=== PATIENT | male | born 1930 | race Caucasian/White ===

== ENCOUNTER 2017-08-26 22:42 | Emergency (ER) | payer MEDICARE, OTHER ==
[2017-08-26 23:31] LABS: #Eosinphils 0.1 thou/uL (0.0-0.7); #Monocytes 0.5 thou/uL (0.11-0.59); #Neutrophils 10.5 thou/uL (1.40-6.50); %Basophils 0.1 % (0.0-1.0); %Eosinophils 0.7 % (0.0-10.0); %Monocytes 3.9 % (0.0-10.0); %Neutrophils 87.3 % (42.0-75.0); Hemoglobin 12.9 g/dL (14.0-18.0); Mean Corpuscular HGB CONC 33.1 g/dL (32.0-36.0); Mean Corpuscular Volume 93.6 fl (80.0-94.0); Platelet Count 175 thou/uL (130-400); RBC Distribution Width 13.9 % (11.5-14.5); Red Blood Cell (RBC) Count 4.17 mill/uL (4.70-6.10); White Blood Cell (WBC) Count 12.1 thou/uL (4.8-10.8)
[2017-08-26 23:53] LABS: ALT (SGPT) 23 U/L (8-55); AST (SGOT) 23 U/L (5-34); Albumin 4.2 g/dL (3.4-4.8); Alkaline Phosphatase 75 U/L (40-150); Anion Gap 12 mmol/L (10-20); BUN (Urea Nitrogen) 32 mg/dL (8.4-25.7); Bilirubin, Total 1.7 mg/dL (0.2-1.2); Calc. Creatinine Clearance 0 mL/min (70-130); Calcium 9.3 mg/dL (7.8-10.44); Carbon Dioxide 27 mmol/L (23-31); Chloride 102 mmol/L (98-107); Estimated GFR-MDRD 80; Globulin 3.2 g/dL (2.4-3.5); Glucose 142 mg/dL (83-110); Magnesium 1.8 mg/dL (1.6-2.6); Potassium 3.9 mmol/L (3.5-5.1); Protein, Total 7.4 g/dL (5.8-8.1); Sodium 137 mmol/L (136-145)
[2017-08-26 23:58] LABS: CKMB 3.7 ng/mL (0-6.6); Troponin I 0.011 ng/mL (< 0.028)
[2017-08-27 01:14] LABS: Bilirubin Negative (Negative); Blood, Urine Moderate (Negative); Clarity CLOUDY (Clear); Glucose, Urine (Dipstick) Negative (Negative); Leukocyte Large (Negative); Nitrite Negative (Negative); Protein, Urine (Dipstick) Negative (Neg-Trace); Specific Gravity, Urine 1.022 (1.002-1.036); Urobilinogen 0.2 mg/dL (0.2-1.0); pH, Urine 5.5 (5.0-9.0)
[2017-08-27 01:17] LABS: Bacteria/HPF 4+ HPF (None Seen); Hyaline Casts/LPF 0-3 HYALINE CAST LPF (0-3 Hyaline); Pathc Cast-AUWi Flag 0.14 (0-2.49); RBC/HPF 0-3 HPF (0-3); Squamous Epithelial 0-3 HPF (0-3)
[2017-08-27 01:19] LABS: Yeast-AUWi Flag 150.6 (0-25.0)
[2017-08-27 01:20] LABS: Yeast-All Forms None Seen HPF (None Seen)
[2017-08-27] MEDS ORDERED: Lidocaine 1% PF 5 ML VIAL ONE (01:41)
[2017-08-27] MEDS ORDERED: cefTRIAXone\\ROCEPHIN 1 GM VIAL ONE (01:41)
== END 2017-08-27 02:05 | disposition home or self-care (01) ==
LOC: ERS 22:42
DX: N39.0 Urinary tract infection, site not specified (principal); E78.5 Hyperlipidemia, unspecified; I10 Essential (primary) hypertension; N40.0 Benign prostatic hyperplasia without lower urinary tract symptoms; Z79.899 Other long term (current) drug therapy
CPT/HCPCS: 80053; 81003; 81015; 82553; 83735; 84484; 85025; 93005; 96372; J0696; J2001

== ENCOUNTER 2017-12-13 17:20 | Emergency (ER) | payer MEDICARE, OTHER ==
[2017-12-13 18:08] LABS: ALT (SGPT) 37 U/L (8-55); AST (SGOT) 40 U/L (5-34); Albumin 3.6 g/dL (3.4-4.8); Alkaline Phosphatase 69 U/L (40-150); Anion Gap 16 mmol/L (10-20); BUN (Urea Nitrogen) 33 mg/dL (8.4-25.7); Bilirubin, Total 1.2 mg/dL (0.2-1.2); CK (CPK) 150 U/L (30-200); Calc. Creatinine Clearance 0 mL/min (70-130); Calcium 8.9 mg/dL (7.8-10.44); Carbon Dioxide 23 mmol/L (23-31); Chloride 105 mmol/L (98-107); Estimated GFR-MDRD 62; Globulin 3.2 g/dL (2.4-3.5); Glucose 166 mg/dL (83-110); Potassium 4.5 mmol/L (3.5-5.1); Protein, Total 6.8 g/dL (5.8-8.1); Sodium 139 mmol/L (136-145)
[2017-12-13 18:11] LABS: Troponin I Less than 0.010 ng/mL (< 0.028)
[2017-12-13 18:20] LABS: Bilirubin Negative (Negative); Blood, Urine Trace (Negative); Clarity CLOUDY (Clear); Glucose, Urine (Dipstick) Negative (Negative); Leukocyte Large (Negative); Nitrite Positive (Negative); Protein, Urine (Dipstick) Trace mg/dL (Neg-Trace); Specific Gravity, Urine 1.019 (1.002-1.036)
[2017-12-13 18:22] LABS: Bacteria/HPF 1+ HPF (None Seen); Hyaline Casts/LPF 4-6 HYALINE CAST LPF (0-3 Hyaline); Pathc Cast-AUWi Flag 0.87 (0-2.49); RBC/HPF 0-3 HPF (0-3); Squamous Epithelial 0-3 HPF (0-3); Yeast-AUWi Flag 17.7 (0-25.0)
--- NOTE | 2017-12-13 18:36 | RAD ---
PORTABLE AP CHEST X-RAY: 12/13/17 HISTORY: Weakness and headache for one day. History of cancer. COMPARISON: 10/24/17. FINDINGS: Pacing device overlies the right chest. The cardiac silhouette and pulmonary vasculature are within n ormal limits. There is mild elevation of the left hemidiaphragm with minimal atelectasis at the left lung base. The lungs otherwise appear clear. Vascular calcifications seen in the thoracic aorta. Ches t is stable from prior study. IMPRESSION: Stable chest without evidence of acute cardiopulmonary process. POS: ALEAH
[2017-12-13] MEDS ORDERED: cefTRIAXone\\ROCEPHIN 1 GM VIAL ONE (19:41)
[2017-12-13] MEDS ORDERED: Sodium Chloride 0.9% 100 ML ONE (19:41)
[2017-12-13 20:11] LABS: #Lymphocytes 1.1 thou/uL (1.20-3.40); #Monocytes 0.3 thou/uL (0.11-0.59); #Neutrophils 4.9 thou/uL (1.40-6.50); %Basophils 0.2 % (0.0-1.0); %Eosinophils 0.7 % (0.0-10.0); %Lymphocytes 17.2 % (21.0-51.0); %Monocytes 4.3 % (0.0-10.0); %Neutrophils 77.5 % (42.0-75.0); Hemoglobin 10.9 g/dL (14.0-18.0); Mean Corpuscular HGB CONC 33.3 g/dL (32.0-36.0); Mean Corpuscular Hemoglobin 31.5 pg (27.0-31.0); Mean Corpuscular Volume 94.6 fL (78.0-98.0); Mean Platelet Volume 7.4 fL (7.4-10.4); Platelet Count 191 thou/uL (130-400); RBC Distribution Width 13.4 % (11.5-14.5); Red Blood Cell (RBC) Count 3.46 mill/uL (4.70-6.10); White Blood Cell (WBC) Count 6.3 thou/uL (4.8-10.8)
--- NOTE | 2017-12-16 19:43 | EKG ---
Test Reason : Blood Pressure : / mmHG Vent. Rate : 086 BPM Atrial Rate : 086 BPM P-R Int : 164 ms QRS Dur : 140 ms QT Int : 404 ms P-R-T Axes : 012 008 006 degrees QTc Int : 483 ms Normal sinus rhythm Right bundle branch block Abnormal ECG Same as prior Confirmed by ALISIA Peguero, JANNETTE ([id number]), dictionary editor ANNABEL KIMBROUGH ([id number]) on 12/16/2017 7:42:45 PM Referred By: Confirmed By:JANNETTE CRUMP M.D.
== END 2017-12-13 21:18 | disposition home or self-care (01) ==
LOC: ERS 17:20
DX: N39.0 Urinary tract infection, site not specified (principal); R53.1 Weakness; E78.5 Hyperlipidemia, unspecified; I10 Essential (primary) hypertension; Z79.899 Other long term (current) drug therapy
CPT/HCPCS: 36415; 36416; 71045; 80053; 81003; 81015; 82550; 82553; 83605; 84443; 84484; 85025; 87077; 87086; 93005; 96361; 96365; J0696; J7050

== ENCOUNTER 2017-12-29 06:34 | Emergency (ER) | payer MEDICARE, OTHER ==
[2017-12-29 07:14] LABS: Bilirubin Negative (Negative); Blood, Urine Large (Negative); Clarity TURBID (Clear); Glucose, Urine (Dipstick) Negative (Negative); Leukocyte Large (Negative); Nitrite Negative (Negative); Protein, Urine (Dipstick) 300 mg/dL (Neg-Trace); Specific Gravity, Urine 1.022 (1.002-1.036); pH, Urine 6.5 (5.0-9.0)
[2017-12-29 07:17] LABS: Hyaline Casts/LPF 4-6 HYALINE CAST LPF (0-3 Hyaline); Pathc Cast-AUWi Flag 1.23 (0-2.49); Squamous Epithelial None Seen HPF (0-3)
[2017-12-29 07:21] LABS: Yeast-AUWi Flag 79.6 (0-25.0)
[2017-12-29 07:32] LABS: Bacteria/HPF Rare-Few HPF (None Seen); RBC/HPF GREATER THAN 50-TNTC HPF (0-3)
== END 2017-12-29 10:25 | disposition home or self-care (01) ==
LOC: ERS 06:34
DX: N39.0 Urinary tract infection, site not specified (principal); E78.5 Hyperlipidemia, unspecified; I10 Essential (primary) hypertension; Z79.899 Other long term (current) drug therapy
CPT/HCPCS: 51702; 81003; 81015; 87077; 87086; 87186

== ENCOUNTER 2017-12-31 15:30 | Emergency (ER) | payer MEDICARE, OTHER | END 2017-12-31 16:20 | disposition home or self-care (01) | LOC: ERS 15:30 | DX: N48.89 Other specified disorders of penis (principal); E78.5 Hyperlipidemia, unspecified; I10 Essential (primary) hypertension; N40.0 Benign prostatic hyperplasia without lower urinary tract symptoms; Z85.72 Personal history of non-Hodgkin lymphomas | CPT/HCPCS: 99283 ==

== ENCOUNTER 2018-01-12 08:41 | Day surgery (SDC) | payer MEDICARE, OTHER ==
[2018-01-11 14:27] VITALS: BMI 24.2
[2018-01-12 09:04] LABS: PTT 27.9 SEC (22.9-36.1); Prothrombin Time 13.6 SEC (12.0-14.7)
[2018-01-12 10:31] VITALS: BP 124/62; TEMP 97
[2018-01-12] MEDS ORDERED: Sodium Bicarbonate 2.5 MEQ/5 ML VIAL ONE (10:33)
[2018-01-12] MEDS ORDERED: Fentanyl 100 MCG/2 ML VIAL ONE (10:34)
--- NOTE | 2018-01-12 15:50 | CT ---
CT GUIDED SUPRAPUBIC CATHETER PLACEMENT: MEDICATION: 25 mcg Fentanyl, IV. FINDINGS: After explaining the procedure and answering all questions, approximately 700 of saline were instille d into the urinary bladder via the indwelling Aranda for bladder distention. Sterile technique, buffered local anesthesia, suprapubic approach, and CT guidance and trocar techniq ue were used to advance a 14-gauge Aranda catheter into the urinary bladder. Retention balloon was ca refully inflated. Large volume of clear liquid was drained. Post procedure imaging shows catheter i n good position. The patient tolerated the procedure well and was eventually discharged in good cond ition. IMPRESSION: Technically successful CT -guided suprapubic catheter placement. POS: ALEAH
== END 2018-01-12 13:00 | disposition home or self-care (01) ==
LOC: CT 08:41
PROVIDERS: ATTEND Urology
PROC: 0T9B30Z Drainage of Bladder with Drainage Device, Percutaneous Approach (ICD-10-PCS; principal; 2018-01-12)
DX: N39.46 Mixed incontinence (principal); N40.1 Benign prostatic hyperplasia with lower urinary tract symptoms; R33.8 Other retention of urine; R39.14 Feeling of incomplete bladder emptying; I10 Essential (primary) hypertension; E78.00 Pure hypercholesterolemia, unspecified; G25.81 Restless legs syndrome; C85.10 Unspecified B-cell lymphoma, unspecified site; Z87.891 Personal history of nicotine dependence; Z87.440 Personal history of urinary (tract) infections; Z79.899 Other long term (current) drug therapy; Z88.1 Allergy status to other antibiotic agents; Z88.7 Allergy status to serum and vaccine
CPT/HCPCS: 51102; 77002; 85610; 85730; C2627; 36415; J3010

== ENCOUNTER 2018-02-11 17:03 | Emergency (ER) | payer MEDICARE, OTHER ==
--- NOTE | 2018-02-11 18:45 | RAD ---
AP PELVIS: HISTORY: Fell on a walker. FINDINGS: The bones are demineralized. There are arthritic changes of the spine and hips. The pelvic ring marisol ears intact without evidence of fracture. There is a high clinical index to suspicion of fracture. CT may be helpful in assessment. IMPRESSION: No evidence of fracture. POS: FADI
--- NOTE | 2018-02-11 18:54 | RAD ---
SACRUM AND COCCYX: HISTORY: Fell on buttocks. FINDINGS: The SI joints are symmetric. I do not appreciate any fracture of the sacrum or coccyx. The bones ar e demineralized. Arthritic changes of the lumbar spine are seen. IMPRESSION: No evidence of fracture. POS: AFDI
== END 2018-02-11 18:42 | disposition home or self-care (01) ==
LOC: ERS 17:03
DX: Z04.3 Encounter for examination and observation following other accident (principal); K21.9 Gastro-esophageal reflux disease without esophagitis; E78.5 Hyperlipidemia, unspecified; I10 Essential (primary) hypertension; F32.9 Major depressive disorder, single episode, unspecified; Z79.899 Other long term (current) drug therapy; W18.30XA Fall on same level, unspecified, initial encounter
CPT/HCPCS: 72170; 72220

== ENCOUNTER 2018-03-30 10:08 | Outpatient (CLI) | payer MEDICARE, OTHER ==
--- NOTE | 2018-03-30 13:49 | MRI ---
MRI LUMBAR SPINE WITHOUT CONTRAST: HISTORY: Right-sided lumbar spine pain. Symptoms are acute. COMPARISON: None. FINDINGS: There is appropriate T1 marrow signal intensity of the lumbar vertebrae, from L2 through L5. At L1, there is abnormal T2 marrow signal hypointensity, with associated T2 and STIR hyperintensity, suggest ing edema from a mild compression fracture. There is mild loss of vertebral body height and mild ret ropulsion. There is a T2 hyperintensity in the upper pole of the right kidney, measuring approximately 1 cm. Th ere is a T2 hyperintensity in the mid pole left kidney, measuring approximately 0.7 cm. Bilateral re nal cortical cysts are favored. Left parapelvic cysts are identified. Symmetric signal intensity of the psoas muscles. The conus medullaris terminates at the inferior aspect of L1. T12-L1: Adequate disk hydration. No significant central canal stenosis. The neural foramina are pa tent bilaterally. L1-L2: No significant loss of disk space height. No significant posterior disk abnormality. Mild t o moderate bilateral foraminal narrowing. L2-L3: Desiccation with mild loss of disk space height. Broad-based disk bulge, ligamentum flavum t hickening, and facet hypertrophy result in moderate central canal stenosis. The right neural foramen is patent. Mild left foraminal narrowing. L3-L4: Desiccation with mild loss of disk space height. Broad-based disk bulge, ligamentum flavum th ickening, and facet hypertrophy result in moderate to severe central canal stenosis. Moderate right and left neural foraminal narrowing. L4-L5: Desiccation with moderate loss of disk space height. Generalized disk bulge without signific ant central canal stenosis. Minimal ligamentum flavum thickening. Severe right and mild to moderate left foraminal narrowing. L5-S1: There is an abnormal T2 and STIR hyperintensity involving the anterior and right aspect of th e disk, which may represent an annular fissure. There is associated STIR hyperintensity. There is a generalized disk bulge, ligamentum flavum thickening, and facet hypertrophy that results in mild harpreet tral canal stenosis. Encroachment upon both subarticular zones with partial obscuration of the bilat eral traversing S1 nerve roots. Small amount of fluid in both facet joints. Severe right foraminal narrowing. Mild to moderate left foraminal narrowing. IMPRESSION: 1. Mild acute compression fracture at L1. 2. Degenerative changes of the lumbar spine, as above. There is significant central canal stenosis at L2-L3 and L3-L4. 3. Mass effect without obscuration of the bilateral traversing S1 nerve roots. 4. Significant right foraminal narrowing at L4-L5 and at L5-S1. 5. Annular fissure of the disk at L5-S1. POS: ALEAH
== END 2018-03-30 10:09 | disposition home or self-care (01) ==
LOC: BICMRI 10:08
PROVIDERS: ATTEND Internal Medicine Geriatric Medicine
DX: M54.41 Lumbago with sciatica, right side (principal); S32.019A Unspecified fracture of first lumbar vertebra, initial encounter for closed fracture; M47.816 Spondylosis without myelopathy or radiculopathy, lumbar region; M48.061 Spinal stenosis, lumbar region without neurogenic claudication; M48.07 Spinal stenosis, lumbosacral region; Q05.7 Lumbar spina bifida without hydrocephalus
CPT/HCPCS: 72148

== ENCOUNTER 2018-05-16 13:35 | Outpatient (CLI) | payer MEDICARE, OTHER ==
[~2018-05-16 13:35] MED LIST: Sodium Chloride 0.9% 15 ML NEB ONE
--- NOTE | 2018-05-16 16:15 | HP ---
HISTORY OF PRESENT ILLNESS: Mr. Ebenezer Mcdonough is a very pleasant 88-year-old gentleman accompanied by his daughter, who presents to the [facility] for evaluation of a pressure ulceration of the right heel in addition to a pressure ulceration of the coccygeal region. The patient's daughter states that the left heel ulcer has been present for 1-1/2 weeks. She states that the wound has been treated with Betadine followed by Mepilex Border. She states that the coccygeal wound has been present for approximately 3 weeks. The patient is presently receiving dressing changes with the assistance of Home Health. The patient was referred to the Wound Center by Dr. Olvera on 05/08/2018. PAST MEDICAL HISTORY: 1. Benign prostatic hypertrophy. 2. Hypertension. 3. Lymphoma. 4. Gastroesophageal reflux disease. 5. Anemia. PAST SURGICAL HISTORY: 1. Left total knee replacement. 2. 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 3. Cholecystectomy. 4. Hernia repair. 5. Mediport placement with subsequent removal. 6. Back surgery. MEDICATIONS: 1. Omeprazole. 2. Lisinopril. 3. Mirtazapine. 4. Probiotics. 5. Ibuprofen. 6. Ultram. 7. Multivitamin. ALLERGIES: LEVAQUIN, INFLUENZA AND PNEUMOCOCCAL VACCINES. SOCIAL HISTORY: Social history is significant for tobacco use of one-half pack of cigarettes per day for 5 years. The patient stopped smoking 50 years ago. The patient denies any history of EtOH use. FAMILY HISTORY: Family history is negative for diabetes mellitus or coronary artery disease. PHYSICAL EXAMINATION: VITAL SIGNS: Temperature 97.5, pulse 91, respirations 20, blood pressure 137/64. GENERAL: An 88-year-old gentleman lying on the table in the examination room, in no acute distress. HEENT: Normocephalic and atraumatic. NECK: No nuchal rigidity. CHEST: Clear to auscultation. CV: Regular rate and rhythm. ABDOMEN: Soft. EXTREMITIES: A wound of the right heel is present, which measures approximately 2.0 x 1.4 cm. No purulent drainage is associated with the wound. No erythema of the skin surrounding the wound is present. No maceration of the skin of the periwound is noted. No significant edema of the right foot is present on exam today. BACK: A coccygeal wound is present, which measures approximately 2.0 x 1.1 cm. No purulent drainage is associated with the wound. No erythema of the skin surrounding the wound is present. No maceration of the skin of the periwound is noted. ASSESSMENT AND PLAN: 1. Pressure ulcerations of right heel and coccygeal region as described above. Dressing changes of Medihoney and Mepilex Border will be initiated today. These dressing changes are to be performed 3 times per week after cleansing and irrigation with the assistance of Home Health. I will see Mr. Mcdonough again in 3 weeks. No antibiotics will be prescribed today based upon the appearance of the wounds. The patient and his daughter understand and are in agreement with the preceding treatment plan. 2. Benign prostatic hypertrophy. 3. Hypertension. 4. Lymphoma. 5. Gastroesophageal reflux disease. 6. Anemia. Job ID: [id number]
== END 2018-05-16 13:36 | disposition home or self-care (01) ==
LOC: WCC 13:35
PROVIDERS: ATTEND Family Medicine
DX: L89.619 Pressure ulcer of right heel, unspecified stage (principal); L89.159 Pressure ulcer of sacral region, unspecified stage; N40.0 Benign prostatic hyperplasia without lower urinary tract symptoms; C85.90 Non-Hodgkin lymphoma, unspecified, unspecified site; I10 Essential (primary) hypertension; K21.9 Gastro-esophageal reflux disease without esophagitis; D64.9 Anemia, unspecified
CPT/HCPCS: 97602; 99203; A4218; G0463

== ENCOUNTER 2018-06-06 15:59 | Outpatient (CLI) | payer MEDICARE, OTHER ==
--- NOTE | 2018-06-06 14:35 | PRG ---
DATE OF SERVICE: 06/06/2018 HISTORY: Mr. Ebenezer Mcdonough is a very pleasant 88-year-old gentleman accompanied by his daughter who presents to the [facility] Center for evaluation of a pressure ulceration of the right heel in addition to a pressure ulceration of the coccygeal region. The patient's daughter previously stated that the left heel ulcer had been present for 1-1/2 weeks at the time of the patient's initial visit to the Wound Center. She stated that the wound had been treated with Betadine followed by Mepilex border. She stated that the coccygeal wound had been present for approximately 3 weeks at the time of the patient's initial presentation to the Wound Center. The patient continues to receive dressing changes with the assistance of Home Health. The patient was referred to the Wound Center by Dr. Olvrea on 05/08/2018. PHYSICAL EXAMINATION: VITAL SIGNS: Temperature 98.0, pulse 108, blood pressure 110/52. EXTREMITIES: Wound of the right heel is present, which measures approximately 1.3 x 1.5 cm. No purulent drainage is associated with the wound. No erythema of the skin surrounding the wound is present. No maceration of the skin of the periwound is noted. No significant edema of the right foot is present on exam today. BACK: A coccygeal wound is present, which measures approximately 0.5 x 0.6 cm. No purulent drainage is associated with the wound. No erythema of the skin surrounding the wound is present. No maceration of the skin of the periwound is noted. ASSESSMENT AND PLAN: 1. Pressure ulcerations of right heel and coccygeal region as described above. Dressing changes of Medihoney and Mepilex border will be continued 3 times per week after cleansing and irrigation with the assistance of Home Health. I will see Mr. Mcdonough again in 3 weeks. The patient and his daughter understand and are in agreement with the preceding treatment plan. 2. Benign prostatic hypertrophy. 3. Hypertension. 4. Lymphoma. 5. Gastroesophageal reflux disease. 6. Anemia. Job ID: [id number]
[~2018-06-06 15:59] MED LIST changes: +LIDOCAINE HCL 4% Topical Sol (4 ML SOLN.PK.G.) ONE
== END 2018-06-06 16:00 | disposition home or self-care (01) ==
LOC: WCC 15:59
PROVIDERS: ATTEND Family Medicine
DX: L89.619 Pressure ulcer of right heel, unspecified stage (principal); L89.159 Pressure ulcer of sacral region, unspecified stage; C85.90 Non-Hodgkin lymphoma, unspecified, unspecified site; N40.0 Benign prostatic hyperplasia without lower urinary tract symptoms; I10 Essential (primary) hypertension; D64.9 Anemia, unspecified; K21.9 Gastro-esophageal reflux disease without esophagitis
CPT/HCPCS: A4218

== ENCOUNTER 2018-07-04 12:53 | Outpatient (CLI) | payer MEDICARE, OTHER ==
[~2018-07-04 12:53] MED LIST changes: -LIDOCAINE HCL 4% Topical Sol (4 ML SOLN.PK.G.) ONE
--- NOTE | 2018-07-04 16:55 | PRG ---
DATE OF SERVICE: 07/04/2018 HISTORY: Mr. Ebenezer Mcdonough is a very pleasant 88-year-old gentleman accompanied by his daughter, who presents to the [facility]ound Center for evaluation of a pressure ulceration of the right heel in addition to a pressure ulceration of the coccygeal region. The patient's daughter previously stated that the left heel ulcer had been present for 1-1/2 weeks at the time of the patient's initial visit to the Wound Center. She stated that the wound had been treated with Betadine followed by Mepilex Border. She stated that the coccygeal wound had been present for approximately 3 weeks at the time of the patient's initial presentation to the Wound Center. The patient continues to receive dressing changes with the assistance of Home Health. The patient was referred to the Wound Center by Dr. Olvera on 05/08/2018. PHYSICAL EXAMINATION: VITAL SIGNS: Temperature 97.5, pulse 91, and blood pressure 130/65. EXTREMITIES: A wound of the right heel is present, which measures approximately 0.7 x 0.6 cm. No purulent drainage is associated with the wound. No erythema of the skin surrounding the wound is present. No maceration of the skin of the periwound is noted. No significant edema of the right foot is present on exam today. BACK: A coccygeal wound is present, which measures approximately 1.3 x 1.0 cm. No purulent drainage is associated with the wound. No erythema of the skin surrounding the wound is present. No maceration of the skin of the periwound is noted. ASSESSMENT AND PLAN: 1. Pressure ulcerations of right heel and coccygeal region as described above. Dressing changes of Medihoney and Mepilex Border will be continued 3 times per week after cleansing and irrigation with the assistance of Home Health. The patient's daughter states that she will contact the Wound Center in order to schedule the patient's next followup appointment. 2. Benign prostatic hypertrophy. 3. Hypertension. 4. Lymphoma. 5. Gastroesophageal reflux disease. 6. Anemia. Job ID: [id number]
== END 2018-07-04 12:54 | disposition home or self-care (01) ==
LOC: WCC 12:53
PROVIDERS: ATTEND Family Medicine
DX: L89.159 Pressure ulcer of sacral region, unspecified stage (principal); L89.619 Pressure ulcer of right heel, unspecified stage; N40.0 Benign prostatic hyperplasia without lower urinary tract symptoms; I10 Essential (primary) hypertension; C85.90 Non-Hodgkin lymphoma, unspecified, unspecified site; K21.9 Gastro-esophageal reflux disease without esophagitis; D64.9 Anemia, unspecified
CPT/HCPCS: 97602; A4218

== ENCOUNTER 2018-09-02 16:28 | Inpatient (IN) | payer MEDICARE, OTHER ==
[~2018-09-02 16:28] MED LIST changes: +ISOVUE-370 76%-LOCM 1 ML ONE; -Sodium Chloride 0.9% 15 ML NEB ONE
[2018-09-02 17:04] LABS: #Eosinphils 0.3 thou/uL (0.0-0.7); #Lymphocytes 2.8 thou/uL (1.20-3.40); #Monocytes 0.8 thou/uL (0.11-0.59); #Neutrophils 9.1 thou/uL (1.40-6.50); %Basophils 0.3 % (0.0-1.0); %Eosinophils 2.5 % (0.0-10.0); %Lymphocytes 21.1 % (21.0-51.0); %Monocytes 6.4 % (0.0-10.0); %Neutrophils 69.7 % (42.0-75.0); Hemoglobin 11.9 g/dL (14.0-18.0); Mean Corpuscular HGB CONC 32.3 g/dL (32.0-36.0); Mean Corpuscular Hemoglobin 31.1 pg (27.0-31.0); Mean Corpuscular Volume 96.1 fL (78.0-98.0); Mean Platelet Volume 7.3 fL (7.4-10.4); Platelet Count 245 thou/uL (130-400); RBC Distribution Width 14.3 % (11.5-14.5); Red Blood Cell (RBC) Count 3.82 mill/uL (4.70-6.10); White Blood Cell (WBC) Count 13.1 thou/uL (4.8-10.8)
--- NOTE | 2018-09-02 17:18 | RAD ---
AP view chest. HISTORY: Chest pain. AP view chest demonstrates EKG leads seen over the chest. Mild pulmonary vascular congestion seen. No evidence of effusions, pneumonia or pneumothorax seen. IMPRESSION: no evidence of acute intrathoracic disease seen.
[2018-09-02] MEDS ORDERED: Ondansetron PF 4 MG/2 ML Vial ONE (17:21)
[2018-09-02 17:27] LABS: ALT (SGPT) 19 U/L (8-55); AST (SGOT) 34 U/L (5-34); Alkaline Phosphatase 85 U/L (40-150); Anion Gap 19 mmol/L (10-20); BUN (Urea Nitrogen) 27 mg/dL (8.4-25.7); Bilirubin, Total 1.6 mg/dL (0.2-1.2); Calc. Creatinine Clearance 0 mL/min (70-130); Calcium 9.4 mg/dL (7.8-10.44); Carbon Dioxide 22 mmol/L (23-31); Chloride 98 mmol/L (98-107); Estimated GFR-MDRD 71; Globulin 3.4 g/dL (2.4-3.5); Glucose 132 mg/dL (83-110); Lipase 17 U/L (8-78); Magnesium 1.8 mg/dL (1.6-2.6); Potassium 3.9 mmol/L (3.5-5.1); Protein, Total 7.4 g/dL (5.8-8.1); Sodium 135 mmol/L (136-145)
[2018-09-02 17:57] LABS: CKMB 10.2 ng/mL (0-6.6)
[2018-09-02] MEDS ORDERED: Morphine 4 MG/ML VIAL ONE (18:07)
[2018-09-02] MEDS ORDERED: Enoxaparin Sodium 80 MG/0.8 ML SYRINGE ONE (18:09)
[2018-09-02] MEDS ORDERED: Enoxaparin Sodium 100 MG/ML SYRINGE ONE (18:11)
[2018-09-02 18:29] LABS: Bilirubin Negative (Negative); Blood, Urine Large (Negative); Clarity CLOUDY (Clear); Glucose, Urine (Dipstick) Negative (Negative); Leukocyte Moderate (Negative); Nitrite Positive (Negative); Protein, Urine (Dipstick) 100 mg/dL (Neg-Trace); Specific Gravity, Urine 1.024 (1.002-1.036)
[2018-09-02 18:34] LABS: Pathc Cast-AUWi Flag 2.31 (0-2.49); Squamous Epithelial None Seen HPF (0-3)
[2018-09-02 18:45] LABS: Bacteria/HPF 1+ HPF (None Seen)
[2018-09-02 18:46] LABS: Hyaline Casts/LPF 0-3 HYALINE CAST LPF (0-3 Hyaline)
[2018-09-02] MEDS ORDERED: Senokot S 8.6-50 MG TAB PO PRN (19:12)
[2018-09-02] MEDS ORDERED: Bisacodyl 10 MG SUPP PR PRN (19:12)
[2018-09-02] MEDS ORDERED: Guaifenesin DM 100-10/5 ML UDCUP PO PRN (19:12)
--- NOTE | 2018-09-02 19:19 | CT ---
Contrast-enhanced CTA chest. HISTORY: Shortness of breath elevated d-dimer. Contrast-enhanced CTA chest is performed. 2-D and 3-D reconstruction images performed on an [employer] 3-D workstation. Areas of patchy by basilar lung consolidation seen. Large left lower lobe and right middle lobe pulmonary artery filling defects seen suggesting pulmonar y emboli. Atherosclerotic calcination seen in the aorta. Coronary artery calcification seen. IMPRESSION: Right middle lobe and left lower lobe intraarterial filling defects compatible with pulmo nary emboli.
[2018-09-02] MEDS ORDERED: Aspirin 325 MG TAB PO SCH (19:30)
[2018-09-02] MEDS ORDERED: MEROPENEM 1 GM/50 ML 1 GM in Premix Bag 1 BAG IVPB SCH ×2 (19:45→22:00)
[2018-09-02 19:53] LABS: Critical Call Chem Troponin I RESULT DECREASING; Troponin I 0.838 ng/mL (< 0.028)
--- NOTE | 2018-09-02 20:20 | HP ---
REASON FOR ADMISSION: Acute respiratory failure with hypoxia, possible PE, possible aspiration, non-ST elevation CA, acute encephalopathy, possible UTI. HISTORY OF PRESENTING ILLNESS: Please note majority of this history is obtained by talking to Dr. Oneil, ER physician and the patient's son and daughter at bedside. The patient is not oriented at present. Per family, patient has been complaining of chest pain, which started out this morning. It is more in the right precordial area. Two weeks back, he has had similar pain which resolved on itself. Around 12:00 p.m., the patient started to have choking spells prior to which he had a hard candy and was chewing on a gum which he spit out. His coughing spells continued and he is spitting up clear saliva. All of this prompted the family to bring him to the emergency room as he was not himself and was confused in addition to all of this. He is normally oriented at home. He has not been ambulating for quite some time now. He lives at home and his children and caregivers care for him. The patient is also on cefuroxime 500 mg twice daily for suspected urinary tract infection from yesterday. He has taken three tablets of it so far. No complaints of fever at home. The patient has a suprapubic catheter and follows up with Dr. Dc. He has had a recent exchange of his catheter done last Monday. PAST MEDICAL AND SURGICAL HISTORY: Hypertension, dyslipidemia, chronic back pain for which he sees Dr. Purcell, benign prostatic hypertrophy, urinary obstruction with suprapubic catheter, history of lymphoma for which last chemotherapy was in March of 2014, is apparently in remission per family, GERD, chronic anemia, left total knee replacement, right ear and right forearm skin cancer with excisions, cholecystectomy, hernia repair, history of MediPort placement with subsequent removal for lymphoma treatment, back surgery. CURRENT MEDICATIONS: He takes; 1. Omeprazole 40 mg daily. 2. Melatonin 5 mg p.o. daily. 3. Lisinopril 20 mg daily. 4. Mirtazapine 30 mg p.o. daily. 5. Gabapentin 100 mg daily. 6. Motrin p.r.n. ALLERGIES: TO INFLUENZA VIRUS VACCINE. IT IS THE TRIVALENT VACCINE. PERSONAL HISTORY: The patient quit smoking more than 30 years ago prior to which he was smoking half pack a day for nearly five or six years. Does not abuse alcohol or drugs. Lives with family at home. FAMILY HISTORY: Negative for diabetes or coronary artery disease. REVIEW OF SYSTEMS: Cannot be obtained as patient is not oriented at present. PHYSICAL EXAMINATION: GENERAL: The patient is an 88-year-old male who is currently not in any acute distress. VITAL SIGNS: Blood pressure 114/84, pulse 126 per minute, saturating 90% on 35% Ventimask. Respiratory rates are 30 per minute, temperature 98.1 degrees Fahrenheit. NECK: Supple. No elevated JVD. HEENT: Eyes, pupils are reacting to light. Oral cavity mucous membranes are dry. No exudates or congestion. CARDIOVASCULAR: S1 and S2 heard. Tachycardic. Murmur plus. RESPIRATORY: Air entry 1+ bilateral. Scattered rhonchi plus, no rales or wheezing. ABDOMEN: Soft. Bowel sounds heard. No tenderness, rigidity, or guarding. EXTREMITIES: No obvious swelling or tenderness in the calf area. Peripheral pulses are 1+ bilateral. No ischemic ulcerations or gangrene. CENTRAL NERVOUS SYSTEM: No gross focal deficits seen. The patient is not oriented at present. PSYCHIATRIC: Cannot be assessed as patient is not oriented. LABORATORY DATA: EKG done shows sinus tach at 123 beats per minute. There is bifascicular block seen. White count of 13, H and H 11 and 36, platelet count 245, with 69% neutrophils. D-dimer is 3.68. Sodium 135, BUN is 27, creatinine 1.0 serum bicarb 22, serum glucose 132, lactic acid 3.8, magnesium is 1.8, T. bilirubin 1.6, CK-MB 10, troponin I 1.0. AST, ALT, and alkaline phosphatase within normal limits. Albumin is 4.0. Lipase is 17. UA shows positive for nitrite moderate leukocyte esterase, 11-20 wbc's and 1+ bacteria. CT angio chest done shows right middle lobe and left lower lobe intra-arterial filling defect compatible with pulmonary emboli. A prior echo done in 2015 shows EF of 60% to 65%. 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 CLINICAL IMPRESSION AND PLAN: The patient will be admitted to telemetry for PE , non ST elevation myocardial infarction, acute encephalopathy, possible sepsis, possible invasive urinary tract infection with indwelling suprapubic catheter, mild metabolic acidosis, acute respiratory failure with hypoxia. The patient has been given a liter of normal saline in the emergency room. We will continue him at 50 mL/ hr. He will be on nitroglycerin paste 0.5 inch q.8 hourly, Lovenox 80 mg subcu q.12 hourly and 81 mg of aspirin daily. I have spoken to Dr. Bob for Pulmonology and Dr. Morris who is customer relationship specialist for Cardiology for consultation. He will be on DuoNeb q.6 hourly, lisinopril 5 mg twice daily. Blood and urine cultures will be obtained. Meropenem 1 g q.8 hourly for suspected urinary tract infection. Likely, the patient is colonized with Pseudomonas and Enterococcus faecalis, which is present in the last three cultures seen on [facility]. A small dose of Lopressor 25 mg twice daily for cardiac protection. Echo with 2D Doppler for left ventricular function will be obtained. I have discussed code status with the patient's power of securities attorney and daughter Ms. Araceli Sainz and they have expressed that patient wanted to be a do not attempt resuscitation. Job ID: [id number] [facility]
[2018-09-02] MEDS ORDERED: Meropenem 1 GM in Sodium Chloride 0.9% 100 ML IVPB SCH (22:00)
[2018-09-02 22:53] LABS: Critical Call Chem Troponin I RESULT DECREASING; Troponin I 0.837 ng/mL (< 0.028)
[2018-09-02 23:08] VITALS: BMI 23.1
[2018-09-03] MEDS: Lisinopril 5 MG TAB PO SCH ×4 (00:26→20:46)
[2018-09-03] MEDS: Metoprolol Tartrate 25 MG TAB PO SCH ×4 (00:27→20:47)
[2018-09-03] MEDS: Nitroglycerin 2% Ointment 1 INCH/1 GM Packet TOP SCH ×4 (00:27→20:48)
[2018-09-03] MEDS ORDERED: Gabapentin 100 MG CAP PO SCH (00:30)
[2018-09-03] MEDS ORDERED: Mirtazapine 30 MG TAB PO SCH (00:30)
[2018-09-03] MEDS ORDERED: Famotidine 20 MG TAB PO SCH (00:30)
[2018-09-03] MEDS: Docusate 100 MG CAP PO SCH ×3 (00:34→20:43)
[2018-09-03] MEDS: Sodium Chloride 0.9% 1,000 ML IV SCH ×2 (00:34→12:16)
[2018-09-03] MEDS: MEROPENEM 1 GM/50 ML 1 GM in Premix Bag 1 BAG IVPB SCH ×3 (04:42→20:41)
[2018-09-03 05:11] LABS: Anion Gap 12 mmol/L (10-20); BUN (Urea Nitrogen) 23 mg/dL (8.4-25.7); Calc. Creatinine Clearance 75 mL/min (70-130); Calcium 8.7 mg/dL (7.8-10.44); Carbon Dioxide 25 mmol/L (23-31); Cardiac Risk 4.8 (Less than 4.5); Chloride 105 mmol/L (98-107); Cholesterol 149 mg/dl (< 200 Desired); Estimated GFR-MDRD 86; Glucose 104 mg/dL (83-110); HDL Cholesterol 31 mg/dL (>60 Neg Risk); LDL Cholesterol, Calculated 104 mg/dL; Sodium 138 mmol/L (136-145); Triglycerides 70 mg/dL (Less than 150)
[2018-09-03 05:35] LABS: #Eosinphils 0.2 thou/uL (0.0-0.7); #Lymphocytes 1.8 thou/uL (1.20-3.40); #Monocytes 0.5 thou/uL (0.11-0.59); %Basophils 0.4 % (0.0-1.0); %Eosinophils 2.7 % (0.0-10.0); %Lymphocytes 20.8 % (21.0-51.0); %Monocytes 5.7 % (0.0-10.0); %Neutrophils 70.4 % (42.0-75.0); Mean Corpuscular HGB CONC 33.3 g/dL (32.0-36.0); Mean Corpuscular Hemoglobin 31.9 pg (27.0-31.0); Mean Corpuscular Volume 95.9 fL (78.0-98.0); Mean Platelet Volume 7.5 fL (7.4-10.4); Platelet Count 174 thou/uL (130-400); Red Blood Cell (RBC) Count 2.82 mill/uL (4.70-6.10); White Blood Cell (WBC) Count 8.5 thou/uL (4.8-10.8)
[2018-09-03] MEDS ORDERED: Aspirin 325 mg Enteric Coated Tablet PO SCH (09:00)
[2018-09-03] MEDS: Aspirin 81 mg Enteric Coated Tablet PO SCH (09:05)
[2018-09-03] MEDS: Lactinex Tablet PO SCH (09:05)
[2018-09-03] MEDS: Enoxaparin Sodium 80 MG/0.8 ML SYRINGE SC SCH ×2 (09:06→20:43)
[2018-09-03] MEDS: Polyethylene Glycol 3350 17 GM Packet PO SCH (09:07)
--- NOTE | 2018-09-03 09:31 | ULT ---
Venous duplex sonogram bilateral lower extremity HISTORY: Pulmonary embolus. FINDINGS: Limited exam due to difficulty in positioning patient and overlying clothing artifact. The visualized portions of each femoral vein as well as each popliteal vein and posterior tibial vein show good color and spectral Doppler flow. Each common femoral vein and greater saphenous junction and the proximal portion of each femoral vein and profunda vein are obscured. IMPRESSION: No sonographic evidence of DVT within either lower extremity. Exam is limited as detailed above.
--- NOTE | 2018-09-03 11:17 | PDOC.PN ---
- Subjective Encounter Start Date: 09/03/18 Encounter Start Time: 09:00 Subjective: is more awake, son at bedside -: responds well to verbal questions, not fully oriented yet -: no sob or chest pain now - Objective Resuscitation Status - Order Detail: 09/02/18 19:02 Resuscitation Status Routine Resuscitation Status: DNAR: NO Resuscitation Discussed with: d/w daughter and POA: Ms.Jena Ceasar Sainz MAR Reviewed: Yes Vital Signs & Weight: Vital Signs (12 hours) Temp Pulse Resp BP BP Pulse Ox 09/03/18 09:06 73 123/77 09/03/18 08:00 96 09/03/18 07:00 96.6 F L 72 18 121/59 L 96 09/03/18 06:33 94 L 09/03/18 06:29 73 16 94 L 09/03/18 03:35 97.1 F L 74 20 98/55 L 97 09/03/18 02:45 77 100/54 L 09/03/18 00:26 91/52 L 09/03/18 00:00 97.8 F 83 19 91/52 L 98 Weight Weight 189 lb 12.8 oz I&O: 09/02/18 09/03/18 09/04/18 06:59 06:59 06:59 Intake Total 385 200 Output Total 750 Balance -365 200 Result Diagrams: 09/03/18 04:07 09/03/18 04:07 Phys Exam - Physical Examination HEENT: PERRLA, sclera anicteric dry mucosa Neck: no JVD, supple Respiratory: no wheezing, no rales Cardiovascular: RRR, no significant murmur Gastrointestinal: soft, non-tender, positive bowel sounds Musculoskeletal: no edema, pulses present Neurological: non-focal, moves all 4 limbs Dx/Plan (1) Pulmonary embolism Code(s): I26.99 - OTHER PULMONARY EMBOLISM WITHOUT ACUTE COR PULMONALE Status : Acute Qualifiers: Pulmonary embolism type: other Chronicity: acute (2) Acute metabolic encephalopathy Code(s): G93.41 - METABOLIC ENCEPHALOPATHY Status: Acute (3) NSTEMI (non-ST elevated myocardial infarction) Code(s): I21.4 - NON-ST ELEVATION (NSTEMI) MYOCARDIAL INFARCTION Status: Acute (4) Dehydration Code(s): E86.0 - DEHYDRATION Status: Acute (5) Acute respiratory failure with hypoxia Code(s): J96.01 - ACUTE RESPIRATORY FAILURE WITH HYPOXIA Status: Acute Comment: stable on ventimask (6) Hyperlipemia Code(s): E78.5 - HYPERLIPIDEMIA, UNSPECIFIED Status: Chronic Qualifiers: Hyperlipidemia type: unspecified Qualified Code(s): E78.5 - Hyperlipidemia , unspecified (7) Hypertension Code(s): I10 - ESSENTIAL (PRIMARY) HYPERTENSION Status: Chronic Qualifiers: Hypertension type: essential hypertension Qualified Code(s): I10 - Essential (primary) hypertension (8) UTI (urinary tract infection) Status: Suspected Qualifiers: Urinary tract infection type: catheter-associated UTI Indwelling urinary catheter type: cystostomy catheter Encounter type: subsequent encounter Qualified Code(s): T83.510D - Infection and inflammatory reaction due to cystostomy catheter, subsequent encounter; N39.0 - Urinary tract infection, site not specified - Plan troponin is trending down -: continue lovenox 80mg q12h, likely NOAC from evening -: await cultures, has been colonized with pseudomonas/e.faecalis in the past -: on meropenem for now. -: continue asp, nitropaste, lopressor and lisinopril * . Gave full updates to son at bedside. Review of Systems - Medications/Allergies Allergies/Adverse Reactions: Allergies Allergy/AdvReac Type Severity Reaction Status Date / Time Flu Vaccine Allergy "went out Uncoded 09/02/18 22:43 of my head" Medications: Current Medications Acetaminophen (Tylenol) 650 mg PO Q4H PRN PRN Reason: Headache/Fever/Mild Pain (1-3) Acidophilus (Floranex) 1 tab PO DAILY [facility] Last Admin: 09/03/18 09:05 Dose: 1 tab Albuterol/Ipratropium (Duoneb) 3 ml NEB [id number] [facility] Last Admin: 09/03/18 06:29 Dose: 3 ml Aspirin (Ecotrin) 81 mg PO DAILY [facility] Last Admin: 09/03/18 09:05 Dose: 81 mg Bisacodyl (Dulcolax) 10 mg CA DAILYPRN PRN PRN Reason: Constipation Docusate Sodium (Colace) 100 mg PO BID [facility] Last Admin: 09/03/18 09:05 Dose: 100 mg Enoxaparin Sodium (Lovenox) 80 mg SC BID [facility] Last Admin: 09/03/18 09:06 Dose: 80 mg Famotidine (Pepcid) 20 mg PO BID UMAIR Gabapentin (Neurontin) 100 mg PO HS [facility] Guaifenesin/Dextromethorphan (Robitussin Dm) 15 ml PO Q4H PRN PRN Reason: Cough Sodium Chloride (Normal Saline 0.9%) 1,000 mls @ 60 mls/hr IV .[id number] [facility] Last Admin: 09/03/18 00:34 Dose: 1,000 mls Meropenem 1 gm/ Device 50 mls @ 100 mls/hr IVPB 0400,1200,2000 [facility] Last Admin: 09/03/18 04:42 Dose: 50 mls Lisinopril (Zestril) 5 mg PO BID [facility] Last Admin: 09/03/18 09:06 Dose: Not Given Melatonin (Melatonin) 6 mg PO HS [facility] Metoprolol Tartrate (Lopressor) 25 mg PO BID [facility] Last Admin: 09/03/18 09:05 Dose: Not Given Mirtazapine (Remeron) 30 mg PO HS [facility] Nitroglycerin (Nitro-Bid 2% Ointment) 0.5 inch TOP Q8HR [facility] Last Admin: 09/03/18 04:49 Dose: Not Given Pantoprazole Sodium (Protonix) 40 mg PO DAILY [facility] Last Admin: 09/03/18 09:05 Dose: 40 mg Polyethylene Glycol (Miralax) 17 gm PO DAILY [facility] Last Admin: 09/03/18 09:07 Dose: 17 gm Senna/Docusate Sodium (Senokot S) 2 tab PO BIDPRN PRN PRN Reason: Constipation
--- NOTE | 2018-09-03 12:42 | CON ---
DATE OF CONSULTATION: HISTORY OF PRESENT ILLNESS: Ebenezer Mcdonough is an 88-year-old, encephalopathic, demented, gentleman, who is unable to give any history. His son is at the bedside, he gives adequate history. He presented to the hospital from home. Apparently, he has 24-hour care at house, with shortness of breath, apparently aspiration. Confusion. CT chest shows bilateral pulmonary emboli. He has been seeing Wound Care for some kind of an ulcer on his heel. He is apparently nonsmoker, though there is concern about him swallowing, but the nurses tell me this morning, he ate his breakfast without any problems. No coughing or wheezing. No chest pain. In fact, the patient denies any symptoms at this time. PAST MEDICAL HISTORY: Pertinent for chronic pain, hypertension, hyperlipidemia, urinary obstruction with a permanent catheter, history of lymphoma. PAST SURGICAL HISTORY: Left total, right ear surgery, hernia repair, MediPort, back surgery. HOME MEDICATIONS: Include; 1. Omeprazole 40. 2. Vitamin. 3. Mirtazapine 30. 4. Melatonin 5. 5. Lisinopril 20. 6. Ibuprofen. 7. Gabapentin. ALLERGIES: NONE. HE IS PRESENTLY STARTED ON LOVENOX. PHYSICAL EXAMINATION: GENERAL: He is confused, encephalopathic, but in no respiratory distress. VITAL SIGNS: His O2 saturation on room air is 94, pulse 75, blood pressure 151/64, temperature 96, respiratory rate 18. CHEST: Minimal crackles and rhonchi. CARDIAC: Normal S1 and S2. No gallops. ABDOMEN: No masses. LABORATORY DATA: White count 8000, hemoglobin and hematocrit are 9 and 27, platelet count is normal. Lytes are normal. Troponin is elevated. BNP is normal. IMPRESSION: 1. Bilateral pulmonary emboli, bilateral infiltrates, pneumonia. 2. No evidence of deep venous thrombosis. 3. Advanced age. The patient apparently is a DNR. Agree with Lovenox. I may switch him over tomorrow to Eliquis. Continue antibiotics as prescribed. Switch over to oral antibiotics tomorrow. His white count is normal. We will follow. Consultation note, 70 minutes, 50% direct patient care. Job ID: [id number]
--- NOTE | 2018-09-03 12:53 | CON ---
DATE OF CONSULTATION: REASON FOR CONSULTATION: Elevated troponin. HISTORY OF PRESENT ILLNESS: Mr. Mcdonough is an 88-year-old gentleman with multiple comorbidities as described below, who re-presented with shortness of breath. He was found to have a pulmonary embolus. This was felt to be submassive. I discussed the case with the son. Mr. Mcdonough currently has underlying dementia. He has been nonambulatory for several months. He recently was recovering from a UTI. He denied chest pain, pressure, or associated symptoms. PAST MEDICAL HISTORY: Hyperlipidemia, hypertension, chronic low back pain, lymphoma, acid reflux, chronic anemia, knee replacement, cholecystectomy, hernia repair, and MediPort placement. HOME MEDICATIONS: Include: 1. Lisinopril. 2. Metolazone. 3. Omeprazole. 4. Gabapentin. 5. . ALLERGIES: NONE. SOCIAL HISTORY: No current tobacco or alcohol use. REVIEW OF SYMPTOMS: Ten-point review of systems is difficult to obtain. He has underlying dementia. PHYSICAL EXAMINATION: GENERAL: Patient is a pleasant male, who is in no acute distress. The patient appears their stated age. VITAL SIGNS: Blood pressure 151/61, pulse 95, temperature afebrile. NEUROLOGIC: The patient is alert and oriented x3 with no focal neurologic deficits. HEENT: Sclerae without icterus. Mouth has moist mucous membranes with normal pallor. NECK: No JVD. Carotid upstroke brisk. No bruits bilaterally. LUNGS: Clear to auscultation with unlabored respirations. BACK: No scoliosis or kyphosis. CARDIAC: Regular rate and rhythm with normal S1 and S2. No S3 or S4 noted. No significant rubs, murmurs, thrills, or gallops noted throughout the precordium. PMI is not displaced. There is no parasternal heave. ABDOMEN: Soft, nontender, nondistended. No peritoneal signs present. No hepatosplenomegaly. No abnormal striae. EXTREMITIES: 2+ femoral and 2+ dorsalis pedis pulses. No cyanosis, clubbing, or edema. SKIN: No gross abnormalities. PERTINENT LABORATORY DATA: Hemoglobin 9.0. Peak troponin 0.837. CT chest, right middle lobe and left lobe filling defects consistent with pulmonary embolus. IMPRESSION: 1. Elevated troponin. 2. Submassive pulmonary embolus. RECOMMENDATIONS: There is good data suggest the association between pulmonary embolus and elevated troponin. The higher troponin, the larger the PE. At this point, continue supportive care. Recommend echo with doppler. We will also monitor his hemoglobin closely. If his hemoglobin continues to decrease on Lovenox, we would then therefore consider IVC filter, which could be performed if needed, but at this point, if there are no contraindication with anticoagulation therapy, we would proceed with anticoagulation treatment. At this point, echo with Doppler is part of the workup, but unlikely to change his current course. Otherwise, from my standpoint, I have no further recommendations. Please re-consult me if needed for IVC filter placement. Job ID: [id number]
[2018-09-03] MEDS: Acetaminophen 325 MG TAB PO PRN (14:14)
[2018-09-03] MEDS: Melatonin 3 MG TAB PO SCH (20:42)
[2018-09-03] MEDS: Mirtazapine 30 MG TAB PO SCH (20:42)
[2018-09-03] MEDS: Gabapentin 100 MG CAP PO SCH (20:42)
[2018-09-03] MEDS ORDERED: diphenhydrAMINE 50 MG CAP PO SCH (23:45)
[2018-09-04] MEDS: MEROPENEM 1 GM/50 ML 1 GM in Premix Bag 1 BAG IVPB SCH (04:41)
[2018-09-04 04:48] LABS: #Eosinphils 0.5 thou/uL (0.0-0.7); #Lymphocytes 1.2 thou/uL (1.20-3.40); #Monocytes 0.4 thou/uL (0.11-0.59); #Neutrophils 4.4 thou/uL (1.40-6.50); %Basophils 0.1 % (0.0-1.0); %Eosinophils 7.1 % (0.0-10.0); %Lymphocytes 18.8 % (21.0-51.0); %Monocytes 6.1 % (0.0-10.0); %Neutrophils 67.9 % (42.0-75.0); Hemoglobin 10.1 g/dL (14.0-18.0); Mean Corpuscular HGB CONC 32.6 g/dL (32.0-36.0); Mean Corpuscular Hemoglobin 31.3 pg (27.0-31.0); Mean Corpuscular Volume 95.9 fL (78.0-98.0); Mean Platelet Volume 7.4 fL (7.4-10.4); Platelet Count 191 thou/uL (130-400); RBC Distribution Width 13.9 % (11.5-14.5); Red Blood Cell (RBC) Count 3.23 mill/uL (4.70-6.10); White Blood Cell (WBC) Count 6.4 thou/uL (4.8-10.8)
[2018-09-04 05:27] LABS: Anion Gap 14 mmol/L (10-20); BUN (Urea Nitrogen) 16 mg/dL (8.4-25.7); Calc. Creatinine Clearance 81 mL/min (70-130); Calcium 9.4 mg/dL (7.8-10.44); Carbon Dioxide 25 mmol/L (23-31); Chloride 106 mmol/L (98-107); Estimated GFR-MDRD Greater than 90; Glucose 104 mg/dL (83-110); Potassium 3.6 mmol/L (3.5-5.1); Sodium 141 mmol/L (136-145)
[2018-09-04] MEDS ORDERED: Metoprolol Tartrate 25 MG TAB PO SCH (05:30)
[2018-09-04] MEDS ORDERED: Lisinopril 5 MG TAB PO SCH (05:45)
[2018-09-04] MEDS: Nitroglycerin 2% Ointment 1 INCH/1 GM Packet TOP SCH ×3 (06:34→21:18)
[2018-09-04] MEDS: Sodium Chloride 0.9% 1,000 ML IV SCH ×2 (07:15→21:20)
[2018-09-04] MEDS: Lisinopril 5 MG TAB PO SCH ×2 (09:01→21:18)
[2018-09-04] MEDS: Lactinex Tablet PO SCH (09:02)
[2018-09-04] MEDS: Metoprolol Tartrate 25 MG TAB PO SCH ×2 (09:02→21:19)
[2018-09-04] MEDS: Docusate 100 MG CAP PO SCH ×2 (09:02→21:19)
[2018-09-04] MEDS: Aspirin 81 mg Enteric Coated Tablet PO SCH (09:02)
[2018-09-04] MEDS: Polyethylene Glycol 3350 17 GM Packet PO SCH (09:03)
[2018-09-04] MEDS: Famotidine 20 MG TAB PO SCH ×2 (09:03→21:19)
[2018-09-04] MEDS: Enoxaparin Sodium 80 MG/0.8 ML SYRINGE SC SCH ×2 (09:03→21:18)
--- NOTE | 2018-09-04 09:04 | PDOC.CTH ---
Cardiology Progress Note - Subjective No compalints. Doing better. - Objective Vital Signs Temp Pulse Resp BP Pulse Ox 09/04/18 06:53 92 L 09/04/18 06:51 83 16 92 L 09/04/18 04:40 96.9 F L 98 22 H 164/83 H 95 09/03/18 23:57 123/57 L 09/03/18 23:20 78 16 Admit Weight 189 lb 12.8 oz Weight 191 lb 3.2 oz 09/03/18 09/04/18 09/05/18 06:59 06:59 06:59 Intake Total 385 3742 Output Total 750 2150 Balance -365 1592 - Physical Examination General/Neuro: NAD Neck: no JVD present Lungs: CTA, unlabored respirations Heart: PMI normal, RRR Abdomen: NT/ND, soft Extremities: + femoral B - Labs Result Diagrams: 09/04/18 04:26 09/04/18 04:26 Troponin/CKMB CK-MB (CK-2) 10.2 ng/mL (0-6.6) H* 09/02/18 16:54 Troponin I 0.837 ng/mL (< 0.028) H* 09/02/18 22:20 - Assessment/Plan PE Elevated troponin Dementia No CV changes ntoed EF normal Increase troponin secondary to recent PE Recommend NOAC Will follow peripherally
--- NOTE | 2018-09-04 09:12 | PRG ---
DATE OF SERVICE: 09/04/2018 SUBJECTIVE: Ebenezer Mcdonough, this morning, remains encephalopathic. Daughters at the bedside, said he does not sleep much at nighttime. OBJECTIVE: VITAL SIGNS: Temperature is 96, pulse is 83, blood pressure is 164/83, and respiratory rate is 18. CHEST: Decreased breath sounds. No wheezing. CARDIAC: Normal S1 and S2. No gallops. ABDOMEN: No masses. LABORATORY DATA: Urine is growing Pseudomonas, more than likely this is colonization from his suprapubic since he is afebrile. IMPRESSION: 1. Urinary tract infection, probably colonization. 2. Bilateral pulmonary emboli. 3. Encephalopathy, dementia. PLAN: At this stage, he is on multiple medications for his encephalopathy. We are trying to deescalate his antibiotics. Switch him over to Levaquin rather to meropenem. We would like to switch him over to Eliquis if he is able to swallow. We will follow. Job ID: [id number]
[2018-09-04] MEDS ORDERED: Zolpidem Tartrate 5 MG TAB PO PRN (13:12)
--- NOTE | 2018-09-04 14:07 | PRG ---
DATE OF SERVICE: 09/04/2018 SUBJECTIVE: The patient's daughter is in the room at the bedside. She reports that he has had very little sleep over the last 36 to 48 hours and he remains confused and at times, somewhat agitated. He has not been eating well as a result of that. She reports he had the melatonin and some Benadryl without any success in helping him sleep. PHYSICAL EXAMINATION: VITAL SIGNS: Temperature is 96.6, pulse 88, respirations 18, O2 saturation 94% on room air, and BP 157/78. GENERAL APPEARANCE: Age-appropriate male. He is confused. He is actually tearful at times when talking about his more difficult childhood. He denies any problems with his breathing and denies any other physical complaints. HEART: Regular rate and rhythm. LUNGS: Clear bilaterally with good chest wall expansion and air exchange. ABDOMEN: Soft, nontender, and nondistended. Positive bowel sounds. No masses. No organomegaly. EXTREMITIES: No cyanosis, clubbing, or edema. LABORATORY DATA: White count 6.4, hemoglobin 10.1, platelets 191. Sodium 141, potassium is 3.6, chloride 106, BUN 16, creatinine 0.78. Urine cultures growing a fairly pansensitive Pseudomonas. Blood cultures negative thus far. IMPRESSION AND PLAN: 1. Pulmonary embolus. The patient is on Lovenox. We will switch over to Eliquis once he can reliably take the p.o. He has been evaluated by Speech Therapy and is liberated to do so from their perspective. However, his delirium is the challenge at this point, so we will go ahead and keep him on the Lovenox today. I did discuss the pros and cons of Eliquis with the patient's daughter and they are amenable to that plan. 2. Encephalopathy, unclear etiology. I suspect the patient has some degree of underlying dementia, although the patient's daughter says he is usually fairly oriented and alert and conversant, but he has had episodes of this in the past when he has had urinary tract infections. We will go ahead and try to give him some low-dose Ambien tonight to address the insomnia. I discussed the pros and cons of using these types of medications in this situation. On one hand, they can certainly induce sleep and that maybe helpful. On the other, they are potentially sedating or psychotropic medications that could prolong some of the delirium. I explained to the patient's daughter that this usually takes time to resolve and there is very little that we can do to actually expedite that process, home would certainly be the best place for him once he is capable, hoping that he will be able to adequately and reliably take p.o. tomorrow and potentially discharge to the care of his family at that time. 3. Elevated troponin secondary to the pulmonary embolus. 4. Acute respiratory failure with hypoxia. Saturations were tolerable on room air at this particular time. 5. Hyperlipidemia. Continue home medications. 6. Hypertension. Continue home medications. 7. Urinary tract infection. The patient's urine is growing Pseudomonas. He has grown Pseudomonas multiple times in the past. I tried to explain the patient's daughter as well that it is difficult to know when this crosses over from being a colonization to being pathogenic. In this case, the pulmonary embolus complicates the situation, could be the source of his delirium rather than the urinary tract infection. He is already on antibiotics of Levaquin. We will go ahead and finish that out. Job ID: [id number]
[2018-09-04] MEDS: Mirtazapine 30 MG TAB PO SCH (19:27)
[2018-09-04] MEDS: Melatonin 3 MG TAB PO SCH (19:27)
[2018-09-04] MEDS ORDERED: diphenhydrAMINE 50 MG in Sodium Chloride 0.9% 50 ML IVPB SCH (20:15)
[2018-09-04] MEDS ORDERED: Ondansetron ODT 4 MG TAB PO PRN (20:58)
[2018-09-04] MEDS ORDERED: Ondansetron PF 4 MG/2 ML Vial IVP PRN (20:58)
[2018-09-04] MEDS: Gabapentin 100 MG CAP PO SCH (21:19)
[2018-09-05 05:29] LABS: Platelet Count 200 thou/uL (130-400)
[2018-09-05 05:54] LABS: Calc. Creatinine Clearance 86 mL/min (70-130); Estimated GFR-MDRD Greater than 90
[2018-09-05] MEDS ORDERED: diphenhydrAMINE 50 MG in Sodium Chloride 0.9% 50 ML IVPB PRN ×2 (08:23→21:00)
[2018-09-05] MEDS: Lactinex Tablet PO SCH (08:42)
[2018-09-05] MEDS: Metoprolol Tartrate 25 MG TAB PO SCH ×2 (08:43→19:19)
[2018-09-05] MEDS: Docusate 100 MG CAP PO SCH ×2 (08:43→19:18)
[2018-09-05] MEDS: Lisinopril 5 MG TAB PO SCH ×2 (08:43→19:18)
[2018-09-05] MEDS: Aspirin 81 mg Enteric Coated Tablet PO SCH (08:43)
[2018-09-05] MEDS: Famotidine 20 MG TAB PO SCH ×2 (08:43→19:19)
[2018-09-05] MEDS: Enoxaparin Sodium 80 MG/0.8 ML SYRINGE SC SCH (08:44)
[2018-09-05] MEDS: Nitroglycerin 2% Ointment 1 INCH/1 GM Packet TOP SCH ×3 (08:44→22:45)
[2018-09-05] MEDS: Acetaminophen 325 MG TAB PO PRN ×2 (08:44→15:02)
[2018-09-05] MEDS: Polyethylene Glycol 3350 17 GM Packet PO SCH (08:44)
--- NOTE | 2018-09-05 09:42 | PRG ---
DATE OF SERVICE: 09/05/2018 SUBJECTIVE: This morning, he is awake, alert, and responsive, less short of breath, had much of his breakfast. OBJECTIVE: VITAL SIGNS: Saturations are 92% on room air, pulse 92, respiratory rate 19, temperature 97, blood pressure 152/72. CHEST: Decreased breath sounds. No wheezing. CARDIAC: Normal S1 and S2. No gallops. ABDOMEN: Soft. IMPRESSION: 1. Urinary tract infection, probably colonization, and gram-negative. 2. Pulmonary embolism. No deep vein thrombosis. 3. Encephalopathy. PLAN: 1. Switch him over to Eliquis. 2. He can probably go back to the skilled nursing over the next several days, 6 months of anticoagulation. 3. Incidentally, his EF was normal. Job ID: [id number]
[2018-09-05] MEDS: Apixaban 5 MG TAB PO SCH ×2 (10:08→19:18)
--- NOTE | 2018-09-05 10:36 | PRG ---
DATE OF SERVICE: 09/05/2018 SUBJECTIVE: The patient got about 5 hours of sleep last night, did not respond to Ambien and ultimately got 50 mg of Benadryl, took a couple of hours for him to respond to that. Not clear if he responded to that at all, he just slept on his own. As the patient's daughters are in the room, they say he is actually asking for some food this morning, which is certainly a good sign. OBJECTIVE: VITAL SIGNS: Temperature 97.6, pulse 92, respirations 19, O2 saturation 92% on room air, and blood pressure 152/72. GENERAL APPEARANCE: Age-appropriate male. He is awake and alert. He is still confused. HEART: Regular rate and rhythm without murmurs, gallops, or rubs. LUNGS: Clear to auscultation bilaterally with good chest wall expansion and air exchange. ABDOMEN: Soft, nontender, and nondistended. Positive bowel sounds. No masses. No organomegaly. EXTREMITIES: No cyanosis, clubbing, or edema. LABORATORY DATA: Hemoglobin is 9.0. Creatinine 0.74. IMPRESSION AND PLAN: 1. Pulmonary embolus. The patient appears to be at a point where he can take p.o. today. We will try to convert him over to p.o. Eliquis as possible, hopefully over to p.o. Levaquin as well. 2. Encephalopathy, appears to have some sundowning and hospital psychoses. We will talk to the family extensively. We will give the Benadryl again and upped his melatonin per their request. They understand this may take some days to resolve and are willing to potentially try to get him back home to help resolve this faster. 3. Acute hypoxic respiratory failure. The patient's oxygen levels are tolerable on room air at this point. 4. Elevated troponin secondary to pulmonary embolus. 5. Urinary tract infection, a possibility he is growing Pseudomonas. Has chronic indwelling suprapubic catheter and has been colonized with this in the past. Continue to treat with Levaquin, to convert to p.o. 6. Hypertension. Continue home medications. 7. Hyperlipidemia. Continue home medications. Discussed the case with Dr. Dc as per the request of the patient's daughter. We are in agreement that suppressive abx would be some possible short term benefits, but long-term risks. Job ID: [id number] [facility]
[2018-09-05] MEDS: Gabapentin 100 MG CAP PO SCH (19:19)
[2018-09-05] MEDS: Mirtazapine 30 MG TAB PO SCH (19:19)
[2018-09-05] MEDS ORDERED: diphenhydrAMINE 12.5 MG/5 ML UDCUP PO PRN (21:00)
[2018-09-05] MEDS ORDERED: Melatonin 3 MG TAB PO SCH (21:00)
[2018-09-06] MEDS: Nitroglycerin 2% Ointment 1 INCH/1 GM Packet TOP SCH (04:39)
[2018-09-06] MEDS: Aspirin 81 mg Enteric Coated Tablet PO SCH (08:33)
[2018-09-06] MEDS: Polyethylene Glycol 3350 17 GM Packet PO SCH (08:33)
[2018-09-06] MEDS: Apixaban 5 MG TAB PO SCH (08:33)
[2018-09-06] MEDS: Lactinex Tablet PO SCH (08:33)
[2018-09-06] MEDS: Lisinopril 5 MG TAB PO SCH (08:33)
[2018-09-06] MEDS: Docusate 100 MG CAP PO SCH (08:33)
[2018-09-06] MEDS: Metoprolol Tartrate 25 MG TAB PO SCH (08:33)
[2018-09-06] MEDS: Famotidine 20 MG TAB PO SCH (08:33)
[2018-09-06] MEDS: Acetaminophen 325 MG TAB PO PRN (09:21)
--- NOTE | 2018-09-06 09:57 | PRG ---
DATE OF SERVICE: 09/06/2018 SUBJECTIVE: This morning, he said he is feeling better. OBJECTIVE: VITAL SIGNS: Saturations are 95% on room air, respiratory rate 16, temperature 97, blood pressure 164/80. GENERAL: No chest pain. CHEST: Decreased breath sounds. No wheezing. CARDIAC: Normal S1, S2. No gallops. ABDOMEN: No masses. IMPRESSION: 1. Pulmonary emboli. 2. Respiratory failure. 3. Advanced age. 4. Normal ejection fraction. PLAN: He can be discharged home any time. Follow up with primary care physician. He needs 6 months of anticoagulation. Job ID: [id number]
[2018-09-06 12:18] VITALS: BP 163/76; TEMP 97.8
== END 2018-09-06 12:03 | disposition home health service (06) | DRG 175 ==
LOC: ERS 16:28 → 2NO 19:12
PROVIDERS: ADMIT Internal Medicine; ATTEND Internal Medicine
DX: I26.99 Other pulmonary embolism without acute cor pulmonale (principal); J96.01 Acute respiratory failure with hypoxia; G93.41 Metabolic encephalopathy; N39.0 Urinary tract infection, site not specified; E87.2 Acidosis; Z66 Do not resuscitate; I10 Essential (primary) hypertension; E78.5 Hyperlipidemia, unspecified; G89.29 Other chronic pain; M54.9 Dorsalgia, unspecified; N40.0 Benign prostatic hyperplasia without lower urinary tract symptoms; F03.90 Unspecified dementia, unspecified severity, without behavioral disturbance, psychotic disturbance, mood disturbance, and anxiety; K21.9 Gastro-esophageal reflux disease without esophagitis; B96.5 Pseudomonas (aeruginosa) (mallei) (pseudomallei) as the cause of diseases classified elsewhere; E86.0 Dehydration; D64.9 Anemia, unspecified; Z96.652 Presence of left artificial knee joint; Z85.828 Personal history of other malignant neoplasm of skin; Z79.899 Other long term (current) drug therapy; Z88.7 Allergy status to serum and vaccine; Z87.891 Personal history of nicotine dependence; T83.510D Infection and inflammatory reaction due to cystostomy catheter, subsequent encounter
CPT/HCPCS: 36415; 71045; 71275; 80048; 80053; 80061; 81001; 81003; 81015; 82553; 82565; 83605; 83690; 83735; 83880; 84484; 85014; 85018; 85025; 85049; 85379; 87040; 87077; 87086; 87186; 93005; 93306; 93970; 94640; 94760; 96360; 96361; 96365; 96372; 96375; J1200; J1650; J1956; J2185; J2270; J2405; J7050; J7620; Q0153; Q0163; Q9966

== ENCOUNTER 2018-10-09 14:20 | Observation (INO) | payer MEDICARE, OTHER ==
[2018-10-09 15:15] LABS: #Eosinphils 0.4 thou/uL (0.0-0.7); #Lymphocytes 1.6 thou/uL (1.20-3.40); #Monocytes 0.6 thou/uL (0.11-0.59); #Neutrophils 6.4 thou/uL (1.40-6.50); %Basophils 0.3 % (0.0-1.0); %Eosinophils 4.8 % (0.0-10.0); %Monocytes 6.9 % (0.0-10.0); %Neutrophils 70.1 % (42.0-75.0); Hemoglobin 10.8 g/dL (14.0-18.0); Mean Corpuscular Hemoglobin 30.8 pg (27.0-31.0); Mean Corpuscular Volume 93.1 fL (78.0-98.0); Mean Platelet Volume 7.4 fL (7.4-10.4); Platelet Count 259 thou/uL (130-400); RBC Distribution Width 13.9 % (11.5-14.5); Red Blood Cell (RBC) Count 3.52 mill/uL (4.70-6.10); White Blood Cell (WBC) Count 9.1 thou/uL (4.8-10.8)
--- NOTE | 2018-10-09 15:31 | RAD ---
PORTABLE AP CHEST XRAY: HISTORY: Altered mental status and weakness. COMPARISON: 09/02/2018. FINDINGS: Bronchovascular markings are accentuated by the shallow depth of inspiration. The interstitial and p atchy parenchymal changes in the right suprahilar region are less prominent on today's exam. No new area of consolidation or pleural fluid is appreciated. Cardiac silhouette and pulmonary vasculature are within normal limits for the portable technique and shallow depth of inspiration. Vascular calci fication is seen in the thoracic aorta. Surgical clips overlie the right upper quadrant. There is g aseous distention of loops of bowel within the upper abdomen with chronic gaseous distention of the s tomach. IMPRESSION: Improvement in interstitial and parenchymal densities in the right suprahilar region. There is other omalley no acute cardiopulmonary process. POS: NABOR
--- NOTE | 2018-10-09 15:33 | RAD ---
THREE VIEWS RIGHT WRIST: 10/09/18 HISTORY: Weakness. COMPARISON: None available. FINDINGS: There is prominent osteoarthritis involving the first carpometacarpal joint. There are irregular calc ific/ossific densities seen laterally which is thought to be attributable to the prominent degenerati ve changes at this level as opposed to an avulsion injury. No obvious acute fracture is seen, and the re is no dislocation. Osteopenia is present. Vascular calcifications are seen volar to the wrist. IMPRESSION: 1. Osteopenia with prominent osteoarthritis involving the first carpometacarpal joint. 2. No acute osseous abnormalities identified. However, if there is persistent pain or strong cli nical concern for fracture of the navicular bone, follow-up views of the wrist are recommended in 4 t o 7 days to exclude a radiographically occult fracture. POS: NABOR
[2018-10-09 15:38] LABS: ALT (SGPT) 25 U/L (8-55); AST (SGOT) 25 U/L (5-34); Albumin 3.6 g/dL (3.4-4.8); Alkaline Phosphatase 74 U/L (40-150); Anion Gap 15 mmol/L (10-20); BUN (Urea Nitrogen) 29 mg/dL (8.4-25.7); Bilirubin, Total 0.7 mg/dL (0.2-1.2); Calc. Creatinine Clearance 0 mL/min (70-130); Calcium 8.9 mg/dL (7.8-10.44); Carbon Dioxide 24 mmol/L (23-31); Chloride 101 mmol/L (98-107); Estimated GFR-MDRD 69; Glucose 117 mg/dL (83-110); Potassium 4.5 mmol/L (3.5-5.1); Protein, Total 6.6 g/dL (5.8-8.1); Sodium 135 mmol/L (136-145)
--- NOTE | 2018-10-09 15:42 | CT ---
NONCONTRAST CT HEAD 10/09/18 HISTORY: Altered mental status. Weakness. COMPARISON: 09/29/15. FINDINGS: Again noted is decreased attenuation of the periventricular white matter which is nonspecific but lik palma reflective of chronic small vessel ischemic changes. There is no evidence of an acute cortical in farction, hemorrhage, mass effect, or midline shift. Cerebral and cerebellar volume loss is again present. The ventricular system remains dilated and out of proportion to the degree of sulcal atrophy. There is no mass effect or midline shift. The visualized paranasal sinuses and mastoid air cells are clear. Calvarial structures have a normal appearance. CT of the head is overall stable when compared to prior exam in 2016. IMPRESSION: 1. No acute intracranial abnormalities demonstrated. 2. Chronic small vessel ischemic changes not significantly progressed. 3. Dilatation of the ventricular system which is out of proportion to the degree of sulcal atrop hy. This could be related to greater central cerebral atrophy, but normal pressure hydrocephalus coul d not be excluded based on this examination. The degree of ventricular dilatation is unchanged compar ed to study in 2016 as well as a study in 2015. POS: NABOR
[2018-10-09] MEDS ORDERED: Bisacodyl 5 MG TAB PO PRN (18:07)
[2018-10-09] MEDS ORDERED: Senokot S 8.6-50 MG TAB PO PRN (18:07)
[2018-10-09] MEDS ORDERED: Nystatin Powder 15 GM BOT TOP PRN (18:18)
[2018-10-09] MEDS ORDERED: Sodium Chloride 0.9% 1,000 ML IV SCH (18:30)
--- NOTE | 2018-10-09 18:35 | RAD ---
EXAM: Single view of the abdomen HISTORY: Abdominal pain COMPARISON: None FINDINGS: Single view of the abdomen shows a nonspecific, nonobstructive bowel gas pattern. No suspi cious calcifications are seen. Degenerative changes are seen in the spine. IMPRESSION: Unremarkable exam
[2018-10-09 18:45] LABS: Bilirubin Negative (Negative); Blood, Urine Moderate (Negative); Glucose, Urine (Dipstick) Negative (Negative); Leukocyte Large (Negative); Nitrite Negative (Negative); Protein, Urine (Dipstick) 100 mg/dL (Neg-Trace)
[2018-10-09 18:51] LABS: Clarity Hazy (Clear)
[2018-10-09 19:09] LABS: Bacteria/HPF 1+ HPF (None Seen); Squamous Epithelial 0-3 HPF (0-3)
[2018-10-09] MEDS ORDERED: Lisinopril 20 MG TAB PO SCH (21:00)
[2018-10-09] MEDS ORDERED: Melatonin 3 MG TAB PO SCH (21:00)
[2018-10-09] MEDS ORDERED: Multivit, Therapeutic 1 TAB PO SCH (21:00)
[2018-10-09] MEDS ORDERED: Mirtazapine 30 MG TAB PO SCH (21:00)
[2018-10-09 21:11] VITALS: BMI 21.6
[2018-10-09] MEDS: Cefepime 1 GM in Sodium Chloride 0.9% 100 ML IVPB SCH (21:13)
[2018-10-09] MEDS: Apixaban 5 MG TAB PO SCH (21:13)
[2018-10-09] MEDS: Metoprolol Tartrate 25 MG TAB PO SCH (21:14)
--- NOTE | 2018-10-10 02:16 | HP ---
CHIEF COMPLAINT: Generalized weakness, lethargy, and vomiting. HISTORY OF PRESENT ILLNESS: The patient is an 88-year-old male who lives at home and is well taking care by his family, who presents to the hospital with complaints of nausea and vomiting x1, also generalized weakness. The patient's family who is at the bedside are the ones providing the history since the patient is unable to provide history. The patient's daughters who are at the bedside stated that the patient on Monday morning woke up at around 2 o'clock or 3 o'clock in the morning and had some emesis. The family has noted that for the past couple days, he has not been eating very much and has not been drinking very much. They denied any fevers or chills. He also does have a suprapubic catheter which was changed about a week ago. According to family, he denies any abdominal pain, however, has been hallucinating which is not new. According to the family, he has been hallucinating for the past few months. Also, he has been more lethargic than his baseline. The patient is currently bed-bound, only gets up with a Kathleen lift. The patient about a week ago was started on medication called Trospium for spasms by the urologist. The patient's family stated that they were noticing that the patient also had some discharge or some urine coming out through his urethra and also through his suprapubic catheter. At this time, the catheter was replaced and also the patient was put on this medication. PAST MEDICAL HISTORY: The patient has a past medical history as of the following; 1. Hypertension. 2. Dyslipidemia. 3. Chronic back pain. He sees Dr. Purcell. 4. BPH. 5. Urinary obstruction with a suprapubic catheter. 6. History of B-cell lymphoma, currently in remission. 7. GERD. 8. Anemia. SURGICAL HISTORY: Total knee replacement, right ear and right forearm skin cancer with excisions, cholecystectomy, hernia repair, history of MediPort placement and removal after treatment for lymphoma. ALLERGIES: HE IS ALLERGIC TO INFLUENZA VIRUS AND ALSO TRIVALENT VACCINE. MEDICATIONS: He is on; 1. Omeprazole 40 mg daily. 2. Melatonin 5 mg daily. 3. Lisinopril 20 mg daily. 4. Mirtazapine 30 mg daily. 5. Gabapentin 100 mg daily. 6. Motrin. PERSONAL HISTORY: He quit smoking about 30 years ago and no alcohol use. Lives with the family. He is currently a DNAR per patient's daughters. FAMILY HISTORY: Negative for diabetes or heart disease. REVIEW OF SYSTEMS: Unable to obtain due to patient's current condition. PHYSICAL EXAMINATION: VITAL SIGNS: Are as of the following; temperature of 98.8, heart rate of 86, 96% on room air, and blood pressure is 153/76. GENERAL: He is awake, alert, and oriented to self and family member. CV: S1 and S2 present. No murmurs, rubs, or gallops. LUNGS: Clear to auscultation. No rhonchi or wheezes noted. ABDOMEN: Soft and nontender. Bowel sounds are present x2. EXTREMITIES: No edema. Pedal pulses are present x2. NEUROVASCULAR: No focal deficits noted. SKIN: He does have some decubitus to his sacrum area. He also has scrotal excoriation. Also, has a suprapubic catheter which has some drainage noted. LABORATORY RESULTS: His WBCs were 9.1, hemoglobin of 10.8, and hematocrit of 32.8. Chemistries; sodium of 135, potassium 4.5, BUN of 29, creatinine 1.02. His urine; it did indicate yellow with large amount of leuko esterase and wbc's. He did have a chest x-ray which indicated improvement of the interstitial and parenchymal density in the right suprahilar region. He also had a CT head that indicated he has cerebral atrophy and also that he had dilation of his ventricular system which were out of proportion to the degree of the sulci atrophy, a consideration for possible normal-pressure hydrocephalus. However, this study is similar and is unchanged compared to the 2016 and 2015, and this was discussed with the family member. Also, he had a wrist x-ray since he complained of right wrist pain. Family did not indicate any falls. I did not indicate any fractures, however, indicated osteopenia and prominent osteoarthritis involving the carpometacarpal joint of the first. ASSESSMENT AND PLAN: The patient is an 88-year-old male who presents to the hospital with complaints of generalized weakness and nausea. 1. Acute metabolic encephalopathy, metabolic versus infectious, etiology versus medication related. I will hold off on this medication which is Trospium, it is a cholinergic and given his age has been listed to have some causes of nausea, vomiting, and also hallucinations. The patient already normally has hallucinations. I will kind of just hold off on this medication, hydrate the patient. Also, he has had a previous history of urinary tract infections, which have indicated Pseudomonas. I will start him on medications of cefepime for now. The patient's family did state that he was on Levaquin before and had made him really confused. Also, we will wait for the culture. I will start IV hydration. 2. Acute kidney injury. We will continue with the hydration. We will continue to monitor. 3. History of recent pulmonary embolism. I will continue his Eliquis. 4. History of hypertension. I will continue his blood pressure since his vitals have been stable. 5. Sacral ulcers. I will get Wound Care to come by and see him and also I will order nystatin for his scrotum excoriation. Job ID: [id number]
[2018-10-10 06:10] LABS: #Eosinphils 0.6 thou/uL (0.0-0.7); #Lymphocytes 1.7 thou/uL (1.20-3.40); #Monocytes 0.5 thou/uL (0.11-0.59); #Neutrophils 3.4 thou/uL (1.40-6.50); %Basophils 0.5 % (0.0-1.0); %Eosinophils 9.5 % (0.0-10.0); Hemoglobin 9.6 g/dL (14.0-18.0); Mean Corpuscular HGB CONC 32.6 g/dL (32.0-36.0); Mean Corpuscular Hemoglobin 30.7 pg (27.0-31.0); Mean Corpuscular Volume 94.2 fL (78.0-98.0); Mean Platelet Volume 7.7 fL (7.4-10.4); Platelet Count 208 thou/uL (130-400); RBC Distribution Width 13.6 % (11.5-14.5); Red Blood Cell (RBC) Count 3.13 mill/uL (4.70-6.10); White Blood Cell (WBC) Count 6.2 thou/uL (4.8-10.8)
[2018-10-10 06:29] LABS: Anion Gap 10 mmol/L (10-20); BUN (Urea Nitrogen) 21 mg/dL (8.4-25.7); Calc. Creatinine Clearance 71 mL/min (70-130); Calcium 8.8 mg/dL (7.8-10.44); Carbon Dioxide 26 mmol/L (23-31); Chloride 106 mmol/L (98-107); Estimated GFR-MDRD 88; Glucose 89 mg/dL (83-110); Potassium 3.9 mmol/L (3.5-5.1); Sodium 138 mmol/L (136-145)
[2018-10-10] MEDS ORDERED: Saccharomyces boulardii 250 MG CAP PO SCH (09:00)
[2018-10-10] MEDS ORDERED: Polyethylene Glycol 3350 17 GM Packet PO SCH (09:00)
[2018-10-10] MEDS: Metoprolol Tartrate 25 MG TAB PO SCH (09:00)
[2018-10-10] MEDS: Cefepime 1 GM in Sodium Chloride 0.9% 100 ML IVPB SCH (09:01)
[2018-10-10] MEDS: Apixaban 5 MG TAB PO SCH (09:01)
[2018-10-10] MEDS: Acetaminophen 325 MG TAB PO PRN ×2 (09:04→13:30)
[2018-10-10] MEDS ORDERED: Gabapentin 100 MG CAP PO SCH ×2 (10:45)
[2018-10-10] MEDS ORDERED: traMADol HCl 50 MG TAB PO PRN (11:02)
[2018-10-10 16:26] VITALS: BP 105/44; TEMP 97.5
--- NOTE | 2018-10-10 16:38 | DIS ---
DATE OF ADMISSION: 10/09/2018 DATE OF DISCHARGE: 10/10/2018 DISCHARGE DIAGNOSES: As of the following; 1. Acute metabolic encephalopathy. 2. Acute kidney injury. 3. Recent pulmonary embolism. 4. Hypertension. HOSPITAL COURSE: The patient is an 88-year-old male, who just was discharged from the hospital about a month ago for UTI, was put on Levaquin. At that time, the family did questions the possibility of prophylactic antibiotics due to his recurrent UTI since the patient does have a suprapubic catheter. The patient's suprapubic catheter was changed about a week ago. However, at this time, this was discussed with his urologist, who recommended against prophylactic antibiotics. The patient's daughter stated that he was brought in due to decreased mentation and also generalized weakness and not eating very much. 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 However, this was unchanged from previous studies and this was discussed with both his daughters. Also, he had a wrist x-ray with indicated osteoarthritis and also an abdominal x-ray, which did not indicate any acute abnormalities. The patient at this time was on a medication for his bladder spasms, which was trospium and this was discontinued. I thought maybe the symptoms could be due to this medications. I did check a urine. The urine did indicate gram-negative rods, most likely Pseudomonas per Microbiology, however, it was not finalized yet. I did discuss this with the patient's daughter, Joy and stated that I could wait for the sensitivities, however, I could discharge the patient home today to avoid any delirium and if something changed, I would call them back and change the antibiotic. Joy did agree to this and I will discharge the patient home today. I have put him on levofloxacin, however, it is not the best drug of choice for him, however, this is what he was on previously and his Pseudomonas was sensitive to the Levaquin. The patient's family has been strongly advised to follow up with his urologist due to there was some concerns of leaking around his urethra. The patient was able to eat some crackers and to tolerate that without any nausea. His x-ray as I mentioned, abdominal x-ray did not indicate any acute abnormalities. The patient again will be discharged home. He will follow up with his primary care and Urology. MEDICATIONS: His home medications will be as the following; 1. Levaquin 500 mg daily for 6 days. 2. Eliquis 5 mg b.i.d. 3. Lactobacillus one tab p.o. daily. 4. Lisinopril 20 mg at bedtime. 5. Multivitamin one p.o. daily. 6. Melatonin 5 mg at bedtime. 7. Metoprolol 25 mg b.i.d. 8. Mirtazapine 30 mg at bedtime. 9. Omeprazole 40 mg at bedtime. 10. Gabapentin 100 mg b.i.d. The patient's daughter did bring up the fact that sometimes he does not have much of an appetite. I did explain to the patient that you know patient is bedbound, does not have any sort of activities and given his age and multiple comorbidities, there will be days that he will not feel hungry. However, if this continues to prolong, then of course certain interventions need to be done. However, I would not want to put the patient on another medication to stimulate his appetite since he does. It seems that he does eat at home. I also told them to avoid any sort of Benadryl that would interfere and make him more confused. I did recommend using low-dose melatonin, which would work just fine. PHYSICAL EXAMINATION: VITAL SIGNS: On discharge were as of the following; temperature of 97.6, pulse 65, respiratory rate 16, oxygen saturation 95% on room air, and blood pressure 106/59. GENERAL: He is awake, alert, and oriented x3. Does not appear in distress. CARDIOVASCULAR: S1 and S2 present. No murmurs, rubs, or gallops. ABDOMEN: Soft and nontender. Bowel sounds are present x2. EXTREMITIES: No edema. Pedal pulses are present x2. Again, he will be discharged home. I have discussed this with his daughter, Joy and I will keep an eye out for the cultures and if the cultures do come back a different type of bacteria, I will notify the family. Job ID: [id number]
== END 2018-10-10 17:07 | disposition home or self-care (01) ==
LOC: ERS 14:20 → T4-A 20:41
PROVIDERS: ADMIT Internal Medicine; ATTEND Internal Medicine
DX: G93.41 Metabolic encephalopathy (principal); N17.9 Acute kidney failure, unspecified; I10 Essential (primary) hypertension; E78.5 Hyperlipidemia, unspecified; G89.29 Other chronic pain; M54.9 Dorsalgia, unspecified; N40.1 Benign prostatic hyperplasia with lower urinary tract symptoms; N13.8 Other obstructive and reflux uropathy; K21.9 Gastro-esophageal reflux disease without esophagitis; M18.11 Unilateral primary osteoarthritis of first carpometacarpal joint, right hand; Z66 Do not resuscitate; Z85.72 Personal history of non-Hodgkin lymphomas; Z86.711 Personal history of pulmonary embolism; Z87.891 Personal history of nicotine dependence; Z79.01 Long term (current) use of anticoagulants; Z79.899 Other long term (current) drug therapy; Z88.7 Allergy status to serum and vaccine; Z98.890 Other specified postprocedural states
CPT/HCPCS: 70450; 71045; 73110; 74018; 80048; 80053; 84484; 85025 ×2; 87077; 87086; 87184; 87186; 93005; 96361 ×2; 96365; 96366; 97139 ×2; 99285; G0378 ×2; 36415; 81003; 81015; J0692; J3490

== ENCOUNTER 2018-11-05 10:55 | Emergency (ER) | payer MEDICARE, OTHER ==
[2018-11-05 11:39] LABS: #Eosinphils 0.4 thou/uL (0.0-0.7); #Monocytes 0.4 thou/uL (0.11-0.59); #Neutrophils 6.1 thou/uL (1.40-6.50); %Basophils 0.3 % (0.0-1.0); %Eosinophils 4.2 % (0.0-10.0); %Lymphocytes 22.8 % (21.0-51.0); %Monocytes 4.8 % (0.0-10.0); %Neutrophils 67.9 % (42.0-75.0); Hemoglobin 11.5 g/dL (14.0-18.0); Mean Corpuscular HGB CONC 31.8 g/dL (32.0-36.0); Mean Corpuscular Hemoglobin 29.9 pg (27.0-31.0); Mean Corpuscular Volume 93.8 fL (78.0-98.0); Mean Platelet Volume 6.9 fL (7.4-10.4); Platelet Count 336 thou/uL (130-400); RBC Distribution Width 14.1 % (11.5-14.5); Red Blood Cell (RBC) Count 3.83 mill/uL (4.70-6.10); White Blood Cell (WBC) Count 8.9 thou/uL (4.8-10.8)
[2018-11-05 11:46] LABS: Bilirubin Negative (Negative); Blood, Urine Large (Negative); Glucose, Urine (Dipstick) Negative (Negative); Leukocyte Large (Negative); Nitrite Positive (Negative); Protein, Urine (Dipstick) 100 mg/dL (Neg-Trace); Urobilinogen 0.2 mg/dL (Less than 2)
--- NOTE | 2018-11-05 11:48 | CT ---
CT BRAIN WITHOUT CONTRAST: HISTORY: Altered mental status COMPARISON: 10/09/2018. FINDINGS: Changes of cortical atrophy and chronic small vessel ischemic disease are again seen. There is stable ventriculomegaly out of proportion to the degree of cortical atrophy. Possibility of normal pressure hydrocephalus should be considered. No evidence of acute infarct. hemorrhage. midline shift or abnormal extra axial fluid collections is seen. The basilar cisterns are patent. The bony calvarium is intact. The visualized paranasal sinuses and mastoid air cells are well-aerated. IMPRESSION: Stable exam. No CT evidence of acute intracranial process.
[2018-11-05 12:00] LABS: Clarity Cloudy (Clear)
[2018-11-05 12:04] LABS: ALT (SGPT) 22 U/L (8-55); AST (SGOT) 23 U/L (5-34); Albumin 3.9 g/dL (3.4-4.8); Alkaline Phosphatase 84 U/L (40-150); Anion Gap 13 mmol/L (10-20); BUN (Urea Nitrogen) 17 mg/dL (8.4-25.7); Bilirubin, Total 0.7 mg/dL (0.2-1.2); Calc. Creatinine Clearance 0 mL/min (70-130); Calcium 10.1 mg/dL (7.8-10.44); Carbon Dioxide 26 mmol/L (23-31); Chloride 100 mmol/L (98-107); Estimated GFR-MDRD 68; Globulin 4.2 g/dL (2.4-3.5); Glucose 113 mg/dL (83-110); Potassium 4.2 mmol/L (3.5-5.1); Protein, Total 8.1 g/dL (5.8-8.1); Sodium 135 mmol/L (136-145)
[2018-11-05 12:17] LABS: Squamous Epithelial 0-3 HPF (0-3); WBC/HPF Greater Than 50 HPF (0-3)
[2018-11-05 12:18] LABS: Bacteria/HPF 2+ HPF (None Seen)
[2018-11-05] MEDS ORDERED: Ciprofloxacin 500 MG TAB ONE (13:34)
[2018-11-05] MEDS ORDERED: Doxycycline 100 MG CAP PO SCH (13:45)
== END 2018-11-05 14:08 | disposition home or self-care (01) ==
LOC: ERS 10:55
DX: N39.0 Urinary tract infection, site not specified (principal); R53.83 Other fatigue; K21.9 Gastro-esophageal reflux disease without esophagitis; I49.9 Cardiac arrhythmia, unspecified; E78.5 Hyperlipidemia, unspecified; I10 Essential (primary) hypertension; F32.9 Major depressive disorder, single episode, unspecified; Z79.899 Other long term (current) drug therapy
CPT/HCPCS: 36415; 70450; 80053; 81003; 81015; 84484; 85025; 93005; 94760; 96360